=== PATIENT | female | born 1955 | race Caucasian/White ===

== ENCOUNTER 2022-03-28 09:53 | Outpatient (CLI) | payer MEDICARE, OTHER | END 2022-03-28 09:54 | disposition home or self-care (01) | LOC: CSHRAD 09:53 | PROVIDERS: ATTEND Nurse Practitioner Family | DX: R13.10 Dysphagia, unspecified (principal); K44.9 Diaphragmatic hernia without obstruction or gangrene; K21.9 Gastro-esophageal reflux disease without esophagitis | CPT/HCPCS: 74220 ==